=== PATIENT | female | born 1985 | race Caucasian/White ===

== ENCOUNTER → 2022-11-28 | Outpatient (CLI) | payer OTHER ==
[2022-11-28 11:14] LABS: ALT 18 U/L; AST 16 U/L; Albumin 4.4 d/dL; Albumin/Globulin Ratio 1.69 Ratio; Alkaline Phosphatase 97 U/L; Blood Urea Nitrogen 9.9 mg/dL; Calcium 9.9 mg/dL; Carbon Dioxide 24.2 mmol/L; Chloride 105 mmol/L; Globulin 2.6 d/dL; Glucose 84 mg/dL; Potassium 4.6 mmol/L; Sodium 140 mmol/L; Total Bilirubin 0.3 mg/dL
[2022-11-29 01:23] LABS: T4, Free (Free Thyroxine) 1.55 ng/dL; Testosterone 41.7 ng/mL
== END | disposition home or self-care (01) ==
LOC: LABWHC1 07:26
PROVIDERS: ATTEND Nurse Practitioner
DX: R63.5 Abnormal weight gain (principal)
CPT/HCPCS: 36415; 80053; 83036; 83525; 84403; 84439; 84443; 84481